=== PATIENT | female | born 1955 | race Caucasian/White ===

== ENCOUNTER 2021-04-18 15:03 | Inpatient (IN) ==
[2021-04-18] MEDS ORDERED: Naloxone 0.4 MG/ML INJ IVP PRN (19:30)
[2021-04-18] MEDS ORDERED: Ondansetron 4 MG/2 ML VIAL IVP PRN (19:30)
[2021-04-18] MEDS ORDERED: D5% in Water 1,000 ML IVC PRN (20:11)
[2021-04-18] MEDS ORDERED: *HR* Dextrose 50 % in Water (Vial) 50 ML VIAL IVP PRN (20:11)
[2021-04-18] MEDS ORDERED: Dextrose Gel 15 GM/37.5 ML TUBE PO PRN ×2 (20:11)
[2021-04-18] MEDS: Insulin LISPRO 300 UNITS/3 ML VIAL SUBQ SCH ×2 (21:41)
[2021-04-18 21:55] LABS: Basophils % 0.2 %; Eosinophils % 0.1 %; Hematocrit 32.4 % (35.3-44.9); Hemoglobin 10.1 g/dL (11.5-15.4); Immature Granulocytes % 0.6 % (0-4); Lymphocytes # 0.5 K/mcL (0.6-4.6); Lymphocytes % 3.3 %; Mean Corpuscular HGB Conc 31.2 g/dL (31.6-35.5); Mean Corpuscular Hemoglobin 24.5 pg (28.0-33.3); Mean Corpuscular Volume 78.5 fL (83.0-100.0); Mean Platelet Volume 9.7 fL (9.4-12.4); Monocytes # 0.3 K/mcL (0.0-1.3); Monocytes % 1.9 %; Neutrophils # 14.7 K/mcL (1.6-8.9); Platelet Count 240 K/mcL (140-400); Red Blood Count 4.13 M/mcL (3.82-4.97); Red Cell Distribution Width 17.2 % (11.5-14.5); Segmented Neutrophils % 93.9 %; White Blood Count 15.7 K/mcL (4.3-11.1)
[2021-04-18 22:11] LABS: Albumin 3.3 g/dL (3.5-5.7); Bilirubin,Total 0.6 mg/dL (0.3-1.0); Calcium 9.5 mg/dL (8.6-10.3); Globulin 3.4 g/dL (2.4-3.5); Potassium 3.9 mEq/L (3.5-5.1); Total Protein 6.7 g/dL (6.4-8.9)
[2021-04-18] MEDS: 0.9 % Sodium Chloride 1,000 ML IVC SCH (22:58)
[2021-04-19] MEDS: tiZANidine 4 MG TABLET PO PRN (00:15)
[2021-04-19 01:37] LABS: Bilirubin,Urine Negative (Negative); Blood,Urine Negative (Negative); Clarity,Urine Clear (Clear); Color,Urine Light-Yellow (Yellow); Glucose,Urine (UA) Normal (Normal); Ketones,Urine Negative (Negative); Leukocyte Esterase,Urine Negative (Negative); Nitrite,Urine Negative (Negative); PH,Urine 5.5 pH Units (5.0-8.0); Protein,Urine Trace mg/dL (Neg-Trace); Specific Gravity,Urine 1.017 (1.010-1.025); Urobilinogen,Urine Normal (Normal)
[2021-04-19] MEDS: *HR* Heparin 5,000 UNIT/ML VIAL SQ SCH ×2 (04:41→16:55)
[2021-04-19 05:22] LABS: Basophils % 0.2 %; Eosinophils % 0.1 %; Hematocrit 29.7 % (35.3-44.9); Hemoglobin 9.4 g/dL (11.5-15.4); Immature Granulocytes % 0.2 % (0-4); Lymphocytes # 0.8 K/mcL (0.6-4.6); Lymphocytes % 5.8 %; Mean Corpuscular HGB Conc 31.6 g/dL (31.6-35.5); Mean Corpuscular Hemoglobin 24.7 pg (28.0-33.3); Mean Platelet Volume 9.5 fL (9.4-12.4); Monocytes # 0.5 K/mcL (0.0-1.3); Monocytes % 3.5 %; Neutrophils # 12.4 K/mcL (1.6-8.9); Platelet Count 237 K/mcL (140-400); Red Blood Count 3.81 M/mcL (3.82-4.97); Red Cell Distribution Width 17.3 % (11.5-14.5); Segmented Neutrophils % 90.2 %; White Blood Count 13.8 K/mcL (4.3-11.1)
[2021-04-19 05:27] LABS: INR 1.3; Prothrombin Time 14.6 Seconds (9.4-12.1)
[2021-04-19 05:44] LABS: Calcium 9.2 mg/dL (8.6-10.3); Magnesium 1.6 mg/dL (1.6-2.6); Potassium 3.7 mEq/L (3.5-5.1)
[2021-04-19 05:57] LABS: Thyroid Stimulating Hormone 0.837 mcIU/mL (0.340-5.600)
[2021-04-19] MEDS: amLODIPine 5 MG TABLET PO SCH (07:59)
[2021-04-19] MEDS: Aspirin 81 MG TAB.CHEW PO SCH (07:59)
[2021-04-19] MEDS: Metoprolol 100 MG TABLET PO SCH ×2 (07:59→20:16)
[2021-04-19 08:02] LABS: Estimated Average Glucose 237 mg/dl; Hemoglobin A1C 9.9 %
[2021-04-19] MEDS: Insulin LISPRO 300 UNITS/3 ML VIAL SUBQ SCH ×4 (08:09→20:17)
[2021-04-19] MEDS ORDERED: cefTRIAXone 1,000 MG in 0.9 % Sodium Chloride Mini Bag 100 ML IVPB SCH (09:00)
[2021-04-19] MEDS: Insulin NPH 100 UNIT/ML (x5UNIT) SUBQ SCH ×2 (09:05→20:24)
[2021-04-19] MEDS: 0.9 % Sodium Chloride 1,000 ML IVC SCH (11:45)
[2021-04-19] MEDS: Piperacillin/Tazobactam 3.375 GM in 0.9 % Sodium Chloride Mini Bag 100 ML IVPB SCH (16:54)
[2021-04-19] MEDS: Acetaminophen 325 MG TABLET PO PRN (16:55)
[2021-04-19] MEDS: Gabapentin 300 MG CAPSULE PO SCH (20:16)
[2021-04-20] MEDS: tiZANidine 4 MG TABLET PO PRN (00:09)
[2021-04-20] MEDS: Piperacillin/Tazobactam 3.375 GM in 0.9 % Sodium Chloride Mini Bag 100 ML IVPB SCH ×4 (00:09→23:25)
[2021-04-20] MEDS: Acetaminophen 325 MG TABLET PO PRN (00:10)
[2021-04-20 02:07] LABS: Hematocrit 28.9 % (35.3-44.9); Hemoglobin 9.4 g/dL (11.5-15.4); Mean Corpuscular HGB Conc 32.5 g/dL (31.6-35.5); Mean Corpuscular Hemoglobin 25.3 pg (28.0-33.3); Mean Corpuscular Volume 77.7 fL (83.0-100.0); Mean Platelet Volume 9.7 fL (9.4-12.4); Platelet Count 251 K/mcL (140-400); Red Blood Count 3.72 M/mcL (3.82-4.97); Red Cell Distribution Width 17.5 % (11.5-14.5); White Blood Count 10.4 K/mcL (4.3-11.1)
[2021-04-20 02:26] LABS: BUN/Creatinine Ratio 28 (6-26); Blood Urea Nitrogen 28 mg/dL (8-23); Carbon Dioxide 22 mEq/L (23-29); Chloride 107 mEq/L (98-107); Potassium 3.6 mEq/L (3.5-5.1); Sodium 137 mEq/L (136-145)
[2021-04-20 02:27] LABS: Calcium 9.3 mg/dL (8.6-10.3); Glucose 137 mg/dL (70-105); Osmolality,Calculated 292 (280-300); eGFR For African Americans > 60 (> 60); eGFR For Non-African Americans 55 (> 60)
[2021-04-20] MEDS ORDERED: Furosemide 20 MG/2 ML VIAL IVP ONE (05:01)
[2021-04-20] MEDS: *HR* Heparin 5,000 UNIT/ML VIAL SQ SCH ×2 (05:23→18:24)
[2021-04-20] MEDS ORDERED: Perflutren Lipid Microsphere 1.3 ML in 0.9 % Sodium Chloride 8.7 ML IVP PRN (07:46)
[2021-04-20] MEDS: Insulin NPH 100 UNIT/ML (x5UNIT) SUBQ SCH ×2 (09:30→20:51)
[2021-04-20] MEDS: amLODIPine 5 MG TABLET PO SCH (09:32)
[2021-04-20] MEDS: Aspirin 81 MG TAB.CHEW PO SCH (09:33)
[2021-04-20] MEDS: Metoprolol 100 MG TABLET PO SCH ×2 (09:33→20:51)
[2021-04-20] MEDS: Insulin LISPRO 300 UNITS/3 ML VIAL SUBQ SCH ×4 (09:33→20:51)
[2021-04-20] MEDS: Furosemide 20 MG/2 ML VIAL IVP SCH ×2 (12:01→20:50)
[2021-04-20] MEDS: Gabapentin 300 MG CAPSULE PO SCH (20:51)
[2021-04-21 02:15] LABS: Hematocrit 31.4 % (35.3-44.9); Hemoglobin 10.2 g/dL (11.5-15.4); Mean Corpuscular HGB Conc 32.5 g/dL (31.6-35.5); Mean Corpuscular Hemoglobin 24.3 pg (28.0-33.3); Mean Corpuscular Volume 74.9 fL (83.0-100.0); Mean Platelet Volume 9.4 fL (9.4-12.4); Platelet Count 307 K/mcL (140-400); Red Blood Count 4.19 M/mcL (3.82-4.97); Red Cell Distribution Width 17.3 % (11.5-14.5); White Blood Count 8.7 K/mcL (4.3-11.1)
[2021-04-21 02:35] LABS: BUN/Creatinine Ratio 22 (6-26); Blood Urea Nitrogen 19 mg/dL (8-23); Calcium 9.8 mg/dL (8.6-10.3); Carbon Dioxide 28 mEq/L (23-29); Chloride 98 mEq/L (98-107); Glucose 127 mg/dL (70-105); Osmolality,Calculated 288 (280-300); Potassium 2.9 mEq/L (3.5-5.1); Sodium 137 mEq/L (136-145); eGFR For African Americans > 60 (> 60); eGFR For Non-African Americans > 60 (> 60)
[2021-04-21] MEDS: *HR* Heparin 5,000 UNIT/ML VIAL SQ SCH ×2 (05:02→16:41)
[2021-04-21] MEDS ORDERED: Potassium Chloride 40 MEQ, Lidocaine 1% 2 ML in 0.9 % Sodium Chloride 500 ML IVPB ONE (07:38)
[2021-04-21] MEDS: Insulin NPH 100 UNIT/ML (x5UNIT) SUBQ SCH ×2 (09:03→20:35)
[2021-04-21] MEDS: Metoprolol 100 MG TABLET PO SCH ×2 (09:04→20:31)
[2021-04-21] MEDS: amLODIPine 5 MG TABLET PO SCH (09:04)
[2021-04-21] MEDS: Furosemide 20 MG/2 ML VIAL IVP SCH (09:04)
[2021-04-21] MEDS: Aspirin 81 MG TAB.CHEW PO SCH (09:04)
[2021-04-21] MEDS: Insulin LISPRO 300 UNITS/3 ML VIAL SUBQ SCH ×4 (09:06→20:33)
[2021-04-21] MEDS: Piperacillin/Tazobactam 3.375 GM in 0.9 % Sodium Chloride Mini Bag 100 ML IVPB SCH ×2 (09:06→16:42)
[2021-04-21] MEDS: Acetaminophen 325 MG TABLET PO PRN ×2 (11:31→20:53)
[2021-04-21] MEDS: lisinopriL 20 MG TABLET PO SCH (12:30)
[2021-04-21] MEDS: Gabapentin 300 MG CAPSULE PO SCH (20:31)
[2021-04-22] MEDS: Piperacillin/Tazobactam 3.375 GM in 0.9 % Sodium Chloride Mini Bag 100 ML IVPB SCH ×2 (00:37→08:16)
[2021-04-22 03:17] LABS: Basophils # 0.1 K/mcL (0.0-0.2); Basophils % 0.6 %; Eosinophils # 0.1 K/mcL (0.0-0.6); Eosinophils % 1.1 %; Hematocrit 30.1 % (35.3-44.9); Hemoglobin 9.5 g/dL (11.5-15.4); Immature Granulocytes % 0.4 % (0-4); Lymphocytes # 1.9 K/mcL (0.6-4.6); Lymphocytes % 23.1 %; Mean Corpuscular HGB Conc 31.6 g/dL (31.6-35.5); Mean Corpuscular Hemoglobin 24.2 pg (28.0-33.3); Mean Corpuscular Volume 76.6 fL (83.0-100.0); Mean Platelet Volume 9.5 fL (9.4-12.4); Monocytes # 0.8 K/mcL (0.0-1.3); Monocytes % 10.5 %; Neutrophils # 5.1 K/mcL (1.6-8.9); Platelet Count 292 K/mcL (140-400); Red Blood Count 3.93 M/mcL (3.82-4.97); Red Cell Distribution Width 17.1 % (11.5-14.5); Segmented Neutrophils % 64.3 %
[2021-04-22 03:35] LABS: BUN/Creatinine Ratio 27 (6-26); Blood Urea Nitrogen 24 mg/dL (8-23); Calcium 9.3 mg/dL (8.6-10.3); Carbon Dioxide 27 mEq/L (23-29); Chloride 102 mEq/L (98-107); Glucose 69 mg/dL (70-105); Osmolality,Calculated 286 (280-300); Potassium 3.4 mEq/L (3.5-5.1); Sodium 137 mEq/L (136-145); eGFR For African Americans > 60 (> 60); eGFR For Non-African Americans > 60 (> 60)
[2021-04-22] MEDS: *HR* Heparin 5,000 UNIT/ML VIAL SQ SCH ×2 (05:45→15:58)
[2021-04-22] MEDS ORDERED: Potassium Chloride Elixir 20 MEQ/15 ML UDC PO ONE (07:27)
[2021-04-22] MEDS: Insulin LISPRO 300 UNITS/3 ML VIAL SUBQ SCH ×3 (08:16→16:52)
[2021-04-22] MEDS: lisinopriL 20 MG TABLET PO SCH (08:18)
[2021-04-22] MEDS: Metoprolol 100 MG TABLET PO SCH (08:18)
[2021-04-22] MEDS: amLODIPine 5 MG TABLET PO SCH (08:19)
[2021-04-22] MEDS: Aspirin 81 MG TAB.CHEW PO SCH (08:19)
[2021-04-22] MEDS ORDERED: Insulin NPH 100 UNIT/ML (x5UNIT) SUBQ SCH (09:00)
[2021-04-22] MEDS ORDERED: hydroCHLOROthiazide 25 MG TABLET PO SCH (09:00)
[2021-04-22 11:01] VITALS: BP 148/66
[2021-04-22] MEDS: Acetaminophen 325 MG TABLET PO PRN (15:52)
[2021-04-22] MEDS: tiZANidine 4 MG TABLET PO PRN (16:35)
== END 2021-04-22 20:13 | disposition home health service (06) | DRG 871 ==
LOC: 2ANU → SUATTDRO 04-19 15:24
PROVIDERS: ADMIT Internal Medicine; ATTEND Internal Medicine